=== PATIENT | male | born 1995 | race American Indian/Alaskan Native ===

== ENCOUNTER 2021-06-23 23:13 | Emergency (ER) | payer OTHER ==
[2021-06-23 23:58] VITALS: BP 110/62
[2021-06-24] MEDS ORDERED: oxyCODONE /ACETAMINOPHEN 5-325MG TAB PO ONE (00:31)
[2021-06-24] MEDS ORDERED: ONDANSETRON 4 MG ODT TAB PO ONE (00:31)
[2021-06-24] MEDS ORDERED: LIDOCAINE (1%) 10 MG/1 ML VIAL 20 ML MDV INFILTRATI ONE (00:31)
[2021-06-24] MEDS ORDERED: SULFAMETHOXAZOLE/TRIMETHOPRIM 800/160MG DS TAB PO ONE (00:31)
[2021-06-24] MEDS ORDERED: IBUPROFEN 600 MG TAB PO ONE (00:31)
[2021-06-24] MEDS ORDERED: CLINDAMYCIN 300 MG CAP PO ONE (00:31)
--- NOTE | 2021-06-24 00:44 | Emergency Department Report ---
ED General Adult HPI - General Chief complaint: Extremity Problem,Nontraumatic Stated complaint: INGROWN HAIR UNDER ARM Source: patient Mode of arrival: Ambulatory Limitations: No Limitations - History of Present Illness Initial comments: Patient is a 25-year-old -[place] male with no past medical history who presents to the ED with complaint of acute onset persistent painful swollen mild erythematous maculopapular rash on left axilla for the last 2 weeks, worse in the last 3 days. Patient states that the symptoms have worsened such that he is unable to perform any active range of motion of the left arm. Patient states that he is also unable to sleep because of worsening pain. Patient denies fever, chills, nausea, vomiting, dizziness, syncope, chest pain, neck pain, shortness of breath, chest pain or abdominal pain, traumatic injury or numbness and tingling or weakness of upper extremities bilaterally. MD Complaint: Swollen, painful mildly erythematous rash on left axilla -: Sudden, week(s) (2) Location: upper extremity (left axilla) Radiation: non-radiation Severity scale (0 -10): 8 Quality: aching, sharp Consistency: constant Improves with: none Worsens with: movement Associated Symptoms: denies other symptoms, rash (swollen painful erythematous maculopapular rash). denies: confusion, chest pain, cough, diaphoresis, fever/chills, headaches, loss of appetite, malaise, nausea/vomiting, shortness of breath, syncope, weakness Treatments Prior to Arrival: none - Related Data Previous Rx's Medication Instructions Recorded Last Taken Type Acetaminophen/Codeine [Tylenol 1 tab PO Q6H PRN #12 tab 06/24/21 Unknown Rx /Codeine # 3 tab] Clindamycin [Clindamycin CAP] 300 mg PO Q8H #30 cap 06/24/21 Unknown Rx Ibuprofen [Motrin] 600 mg PO Q8H PRN #30 tablet 06/24/21 Unknown Rx Sulfamethoxazole/Trimethoprim 1 each PO Q12H #20 tab 06/24/21 Unknown Rx [Bactrim DS TAB] Allergies Allergy/AdvReac Type Severity Reaction Status Date / Time No Known Allergies Allergy Unverified 06/23/21 23:52 ED Review of Systems ROS: Stated complaint: INGROWN HAIR UNDER ARM Other details as noted in HPI Constitutional: denies: chills, fever Eyes: denies: eye pain, eye discharge, vision change ENT: denies: ear pain, throat pain Respiratory: denies: cough, shortness of breath, wheezing Cardiovascular: denies: chest pain, palpitations Endocrine: no symptoms reported Gastrointestinal: denies: abdominal pain, nausea, diarrhea Genitourinary: denies: urgency, dysuria Musculoskeletal: denies: back pain, joint swelling, arthralgia Skin: rash (Swollen, mild erythematous maculopapular tender fluctuant rash on left axilla), change in color. denies: lesions, change in hair/nails, pruritus Neurological: denies: headache, weakness, paresthesias Psychiatric: denies: anxiety, depression Hematological/Lymphatic: denies: easy bleeding, easy bruising ED Past Medical Hx - Past Medical History Previous Medical History?: No - Surgical History Past Surgical History?: No - Medications Home Medications: Home Medications Medication Instructions Recorded Confirmed Last Taken Type Acetaminophen/Codeine [Tylenol 1 tab PO Q6H PRN #12 tab 06/24/21 Unknown Rx /Codeine # 3 tab] Clindamycin [Clindamycin CAP] 300 mg PO Q8H #30 cap 06/24/21 Unknown Rx Ibuprofen [Motrin] 600 mg PO Q8H PRN #30 tablet 06/24/21 Unknown Rx Sulfamethoxazole/Trimethoprim 1 each PO Q12H #20 tab 06/24/21 Unknown Rx [Bactrim DS TAB] ED Physical Exam - General Limitations: No Limitations General appearance: alert, in no apparent distress - Head Head exam: Present: atraumatic, normocephalic, normal inspection - Eye Eye exam: Present: normal appearance, PERRL, EOMI Pupils: Present: normal accommodation - ENT ENT exam: Present: normal exam, normal orophraynx, mucous membranes moist, TM's normal bilaterally, normal external ear exam - Neck Neck exam: Present: normal inspection, full ROM - Respiratory Respiratory exam: Present: normal lung sounds bilaterally. Absent: respiratory distress, wheezes, rales, rhonchi, chest wall tenderness, accessory muscle use, decreased breath sounds, prolonged expiratory - Cardiovascular Cardiovascular Exam: Present: regular rate, normal rhythm, normal heart sounds. Absent: systolic murmur, diastolic murmur, rubs, gallop - GI/Abdominal GI/Abdominal exam: Present: soft, normal bowel sounds. Absent: tenderness, guarding, rebound, hyperactive bowel sounds, hypoactive bowel sounds, organomegaly, bruit - Extremities Exam Extremities exam: Present: normal inspection, full ROM, normal capillary refill. Absent: tenderness, pedal edema, calf tenderness - Back Exam Back exam: Present: normal inspection, full ROM. Absent: tenderness, CVA tenderness (R), CVA tenderness (L), muscle spasm, paraspinal tenderness, vertebral tenderness - Neurological Exam Neurological exam: Present: alert, oriented X3, CN II-XII intact, normal gait, reflexes normal - Psychiatric Psychiatric exam: Present: normal affect, normal mood - Skin Skin exam: Present: warm, dry, intact, rash (Swollen, severely tender mild erythematous maculopapular fluctuant rash on left axilla), erythema. Absent: normal color ED Course Vital Signs 06/23/21 23:55 Temperature 99.5 F Pulse Rate 93 H Respiratory 18 Rate Blood Pressure 110/62 O2 Sat by Pulse 98 Oximetry - I & D Left Arm Type of Procedure: Simple Site: left axilla Blade Size: 11 I & D Procedure: betadine prep, sterile drapes applied, sterile dressing applied, gauze wick placed Progress: The area was cleaned with normal saline and Betadine solutions. Lidocaine 1% solution was used as a local anesthetic. When anesthesia was fully achieved, the area was lanced with scalpel blade #11 and take copious greenish-yellowish purulent discharge drained. The wound was then extensively debrided with normal saline and flocculation's were broken with hemostat. The wound was then packed with iodoform quarter inch gauze and dressed appropriately with 4 x 4 and Tegaderm. Patient tolerated procedure well. ED Medical Decision Making - Medical Decision Making This is a 25-year-old -[place] male with no past medical history who presents to the ED with complaint of acute onset persistent painful swollen mild erythematous maculopapular rash on left axilla for the last 2 weeks, worse in the last 3 days. Patient states that the symptoms have worsened such that he is unable to perform any active range of motion of the left arm. Patient states that he is also unable to sleep because of worsening pain. In the ED, patient is alert and oriented x3 and is not in any distress. Patient was treated for pain and also given initial oral antibiotics. The left axilla swollen fluctuant rash was incised and drained per protocol. Patient tolerated the procedure well. Patient was discharged home on pain medication and antibiotics and advise d to return to the immediately if symptoms get worse. Patient was otherwise advised to return to the ED in 2 days for wound recheck, otherwise follow-up with his primary care physician in 7 to 10 days for reevaluation. - Differential Diagnosis Cellulitis; folliculitis; cutaneous abscess Critical care attestation.: If time is entered above; I have spent that time in minutes in the direct care of this critically ill patient, excluding procedure time. ED Disposition Clinical Impression: Cellulitis of left axilla, Cutaneous abscess of left axilla, Acute folliculitis Disposition: HOME / SELF CARE / HOMELESS Is pt being admited?: No Does the pt Need Aspirin: No Condition: Stable Instructions: Skin Abscess, [id number], Cellulitis, Adult, [id number], Incision and Drainage, Care After, Folliculitis Additional Instructions: Take medication with food, drink plenty of fluids and follow-up with your primary care physician in 7 to 10 days for reevaluation. Return to the ED immediately if symptoms get worse. Otherwise return to the ED in 2 days for wound recheck and packing removal. Prescriptions: Sulfamethoxazole/Trimethoprim [Bactrim DS TAB] 1 each PO Q12H #20 tab Clindamycin [Clindamycin CAP] 300 mg PO Q8H #30 cap Ibuprofen [Motrin] 600 mg PO Q8H PRN #30 tablet PRN Reason: Pain Acetaminophen/Codeine [Tylenol /Codeine # 3 tab] 1 tab PO Q6H PRN #12 tab PRN Reason: Pain , Severe (7-10) Referrals: [facility] [Provider Group] - 7-10 days Forms: Work/School Release Form(ED) Time of Disposition: 00:46 Print Language: CZECH
== END 2021-06-24 03:30 | disposition home or self-care (01) ==
LOC: ED 23:13
DX: L02.412 Cutaneous abscess of left axilla (principal); L03.112 Cellulitis of left axilla; L73.9 Follicular disorder, unspecified
CPT/HCPCS: 10060; 99282; J3490; Q0162

== ENCOUNTER 2021-06-25 15:36 | Emergency (ER) | payer OTHER ==
[2021-06-25 16:07] VITALS: BP 112/55
--- NOTE | 2021-06-25 21:01 | Emergency Department Report ---
- General Chief Complaint: Laceration/Recheck/Suture Stated Complaint: WOUND PACKING REMOVED Source: patient Mode of arrival: Ambulatory Limitations: No Limitations - History of Present Illness Initial Comments: 25-year-old male presents to the ED for iodoform packing removal of the left forearm. Patient had packing placed 2 days ago. Packing note to the left armpit.No erythema or drainage noted from site. He denies any fever ,chills or nausea and vomiting. Patient states that he feels better since packing has been removed. Patient is alert and oriented x3. No acute distress noted. No ill appearance noted. Iodoform packing removed.no drainage noted. Rechecked the patient is resting quietly quietly and comfortable and feeling better. I discussed the results of diagnostic study, my clinical impression and the plan for further treatment with the patient. Patient agrees with plan and discharge at this present time. All question addressed. I have given the patient instruction regarding a diagnosis ,expectation ,follow- up and return precaution. I explained to the patient that emergent condition may arise and to return to the ED for new worsen and any new persisting condition. I have explained the importance of following up with the primary care physician or referral physician listed below has instructed. The patient verbalized understanding of discharge instruction. - Related Data Previous Rx's Medication Instructions Recorded Last Taken Type Acetaminophen/Codeine [Tylenol 1 tab PO Q6H PRN #12 tab 06/24/21 Unknown Rx /Codeine # 3 tab] Clindamycin [Clindamycin CAP] 300 mg PO Q8H #30 cap 06/24/21 Unknown Rx Ibuprofen [Motrin] 600 mg PO Q8H PRN #30 tablet 06/24/21 Unknown Rx Sulfamethoxazole/Trimethoprim 1 each PO Q12H #20 tab 06/24/21 Unknown Rx [Bactrim DS TAB] Allergies Allergy/AdvReac Type Severity Reaction Status Date / Time No Known Allergies Allergy Unverified 06/23/21 23:52 ED Review of Systems ROS: Stated complaint: WOUND PACKING REMOVED Other details as noted in HPI Constitutional: denies: chills, fever Eyes: denies: eye pain, eye discharge, vision change ENT: denies: ear pain, throat pain Respiratory: denies: cough, shortness of breath, wheezing Cardiovascular: denies: chest pain, palpitations Endocrine: no symptoms reported Gastrointestinal: denies: abdominal pain, nausea, diarrhea Genitourinary: denies: urgency, dysuria Musculoskeletal: denies: back pain, joint swelling, arthralgia Skin: denies: rash, lesions Neurological: denies: headache, weakness, paresthesias Psychiatric: denies: anxiety, depression Hematological/Lymphatic: denies: easy bleeding, easy bruising ED Past Medical Hx - Medications Home Medications: Home Medications Medication Instructions Recorded Confirmed Last Taken Type Acetaminophen/Codeine [Tylenol 1 tab PO Q6H PRN #12 tab 06/24/21 Unknown Rx /Codeine # 3 tab] Clindamycin [Clindamycin CAP] 300 mg PO Q8H #30 cap 06/24/21 Unknown Rx Ibuprofen [Motrin] 600 mg PO Q8H PRN #30 tablet 06/24/21 Unknown Rx Sulfamethoxazole/Trimethoprim 1 each PO Q12H #20 tab 06/24/21 Unknown Rx [Bactrim DS TAB] ED Physical Exam - General Limitations: No Limitations General appearance: alert, in no apparent distress - Head Head exam: Present: atraumatic, normocephalic - Eye Eye exam: Present: normal appearance - ENT ENT exam: Present: mucous membranes moist - Neck Neck exam: Present: normal inspection - Respiratory Respiratory exam: Present: normal lung sounds bilaterally. Absent: respiratory distress - Cardiovascular Cardiovascular Exam: Present: regular rate, normal rhythm. Absent: systolic murmur, diastolic murmur, rubs, gallop - GI/Abdominal GI/Abdominal exam: Present: soft, normal bowel sounds - Rectal Rectal exam: Present: deferred - Extremities Exam Extremities exam: Present: normal inspection - Back Exam Back exam: Present: normal inspection - Neurological Exam Neurological exam: Present: alert, oriented X3 - Psychiatric Psychiatric exam: Present: normal affect, normal mood - Skin Skin exam: Present: warm, dry, intact, normal color. Absent: rash ED Course Vital Signs 06/25/21 16:05 Temperature 98 F Pulse Rate 71 Respiratory 16 Rate Blood Pressure 112/55 [Left] O2 Sat by Pulse 99 Oximetry ED Medical Decision Making - Medical Decision Making 25-year-old male presents to the ED for iodoform packing removal of the left forearm. Patient had packing placed 2 days ago. Packing note to the left armpit.No erythema or drainage noted from site. He denies any fever ,chills or nausea and vomiting. Patient states that he feels better since packing has been removed. Patient is alert and oriented x3. No acute distress noted. No ill appearance noted. Critical care attestation.: If time is entered above; I have spent that time in minutes in the direct care of this critically ill patient, excluding procedure time. ED Disposition Clinical Impression: Abscess packing removal Disposition: HOME / SELF CARE / HOMELESS Is pt being admited?: No Does the pt Need Aspirin: No Condition: Stable Instructions: Wound Care, Adult Additional Instructions: continue to take antibiotic as prescribed Return to the ED for any worsening symptom Referrals: ULISES PINEDO MD [Primary Care Provider] - 3-5 Days Forms: Work/School Release Form(ED)
== END 2021-06-25 21:32 | disposition home or self-care (01) ==
LOC: ED 15:36
DX: Z48.817 Encounter for surgical aftercare following surgery on the skin and subcutaneous tissue (principal)
CPT/HCPCS: 99282